=== PATIENT | male | born 1945 | race Caucasian/White ===

== ENCOUNTER 2018-01-18 15:55 | Inpatient (IN) | payer MEDICARE ==
[~2018-01-18] VITALS: Ht 180.3 cm; Wt 88.4 kg
[2018-01-18] MEDS ORDERED: GABA600T2 PO (16:05)
[2018-01-18] MEDS ORDERED: AMLODIPINE PO (16:05)
[2018-01-18] MEDS ORDERED: METF500T17 PO (16:05)
[2018-01-18] MEDS ORDERED: STATIN PO (16:05)
[2018-01-18] MEDS ORDERED: MELO15TA24 PO (16:05)
[2018-01-18] MEDS ORDERED: LOSA1TAB22 PO (16:05)
[2018-01-18] MEDS ORDERED: FINA5TAB4 PO (16:05)
[2018-01-18] MEDS ORDERED: FENO145T32 PO (16:05)
[2018-01-18 16:38] LABS: BASOPHILS # (AUTO) 0.07 x10^3/uL (0-0.1); BASOPHILS % (AUTO) 1 % (0-1); EOSINOPHILS # (AUTO) 0.12 x10^3/uL (0-0.4); EOSINOPHILS % (AUTO) 2 % (1-7); LYMPHOCYTES # (AUTO) 1.77 x10^3/uL (1-3.4); LYMPHOCYTES % (AUTO) 28 % (22-44); MD NO; MEAN CORPUSCULAR HEMOGLOBIN 30.2 pg (27.5-34.5); MONOCYTES # (AUTO) 0.38 x10^3/uL (0.2-0.8); MONOCYTES % (AUTO) 6 % (2-9); NEUTROPHILS % (AUTO) 64 % (42-75); PLATELET COUNT 418 x10^3/uL (130-400); RED BLOOD COUNT 4.41 x10^6/uL (4.38-5.82); RED CELL DISTRIBUTION WIDTH 13.6 % (9.4-14.8)
[2018-01-18 16:45] LABS: ALANINE AMINOTRANSFERASE 27 U/L (12-78); ALBUMIN 3.2 g/dL (3.4-5.0); ANION GAP 12 mmol/L (5-15); CALCIUM 8.6 mg/dL (8.5-10.1); CHLORIDE 106 mmol/L (98-107)
[2018-01-18 16:47] LABS: INTERNATIONAL NORMALIZED RATIO 0.99 (0.93-1.1); PROTHROMBIN TIME 10.5 Seconds (9.6-11.5)
[2018-01-18 16:50] LABS: ALKALINE PHOSPHATASE 58 U/L (45-117); BILIRUBIN,TOTAL 0.3 mg/dL (0.2-1.0); TOTAL PROTEIN 6.7 g/dL (6.4-8.2); TROPONIN I < 0.015 ng/mL (0.000-0.045)
[2018-01-18] MEDS ORDERED: SODIUM CHLORIDE 0.9% 1,000ML IVBOLUS ONE (17:00)
[2018-01-18 17:36] LABS: MICROSCOPIC NOT IND
[2018-01-18] MEDS ORDERED: ASPIRIN 81 MG TABLET EC ONE (17:46)
[2018-01-18 17:51] LABS: CULTURE INDICATED? NO
[2018-01-18] MEDS ORDERED: SODIUM CHLORIDE FLUSH 10ML SYR IVF ONE (18:00)
[2018-01-18] MEDS ORDERED: POLYETHYLENE GLYCOL 17 GM PACKET PO PRN (18:00)
[2018-01-18] MEDS ORDERED: ACETAMINOPHEN 325 MG TABLET PO PRN (18:00)
[2018-01-18] MEDS ORDERED: SODIUM CHLORIDE 0.9% 1,000 ML IV ONE (18:00)
[2018-01-18] MEDS ORDERED: ASPIRIN 81 MG TABLET EC PO ONE (18:00)
[2018-01-18] MEDS ORDERED: BISACODYL 10 MG SUPP PR PRN (18:00)
[2018-01-18] MEDS ORDERED: ONDANSETRON ODT 4 MG PO PRN (18:00)
[2018-01-18 18:55] LABS: HEMOGLOBIN A1C 6.9 % (4.2-6.3)
[2018-01-18 19:28] VITALS: BP 109/69
[2018-01-18] MEDS ORDERED: metFORMIN 500 MG TABLET PO SCH (21:00)
[2018-01-18] MEDS: HEPARIN 5,000 UNITS/ML, 1ML SQ SCH (22:31)
[2018-01-18] MEDS: GABAPENTIN 300 MG CAPSULE PO SCH (22:32)
[2018-01-18] MEDS: SODIUM CHLORIDE FLUSH 10ML SYR IVF SCH (22:33)
[2018-01-19] VITALS (7 sets, daily range): BP systolic 101–133; BP diastolic 65–87
[2018-01-19 06:03] LABS: BASOPHILS # (AUTO) 0.06 x10^3/uL (0-0.1); BASOPHILS % (AUTO) 1 % (0-1); EOSINOPHILS % (AUTO) 3 % (1-7); LYMPHOCYTES % (AUTO) 36 % (22-44); MD NO; MEAN CORPUSCULAR HEMOGLOBIN 30.2 pg (27.5-34.5); MEAN CORPUSCULAR HGB CONC 33.9 g/dL (33.2-36.2); MEAN CORPUSCULAR VOLUME 89.1 fL (81-97); MEAN PLATELET VOLUME 7.1 fL (7.4-10.4); MONOCYTES % (AUTO) 8 % (2-9); NEUTROPHILS % (AUTO) 53 % (42-75); PLATELET COUNT 402 x10^3/uL (130-400); RED BLOOD COUNT 4.29 x10^6/uL (4.38-5.82); RED CELL DISTRIBUTION WIDTH 13.6 % (9.4-14.8)
[2018-01-19 06:14] LABS: ALBUMIN 3.2 g/dL (3.4-5.0); ANION GAP 8 mmol/L (5-15); CALCIUM 8.8 mg/dL (8.5-10.1); CHLORIDE 109 mmol/L (98-107)
[2018-01-19 06:21] LABS: ALANINE AMINOTRANSFERASE 26 U/L (12-78); ALKALINE PHOSPHATASE 45 U/L (45-117); BILIRUBIN,TOTAL 0.3 mg/dL (0.2-1.0); CREATININE 1.01 mg/dL (0.7-1.3); TOTAL PROTEIN 6.4 g/dL (6.4-8.2); TROPONIN I < 0.015 ng/mL (0.000-0.045)
[2018-01-19] MEDS: ASPIRIN 325 MG TABLET EC PO SCH (06:22)
[2018-01-19] MEDS: HEPARIN 5,000 UNITS/ML, 1ML SQ SCH ×2 (06:22→13:30)
[2018-01-19] MEDS ORDERED: LOSARTAN 50MG TABLET PO SCH (09:00)
[2018-01-19] MEDS ORDERED: FENOFIBRATE 145 MG TABLET PO SCH (09:00)
[2018-01-19] MEDS: GABAPENTIN 300 MG CAPSULE PO SCH ×2 (10:08→19:53)
[2018-01-19] MEDS: FINASTERIDE 5 MG TABLET PO SCH (10:08)
[2018-01-19] MEDS: FENOFIBRATE 145 MG TABLET PO SCH (10:08)
[2018-01-19] MEDS: SENNA/DOCUSATE TABLET PO SCH (10:09)
[2018-01-19] MEDS ORDERED: OMNIPAQUE 350 MG/ML, 100ML BOTTLE ONE (10:55)
[2018-01-19] MEDS: SODIUM CHLORIDE FLUSH 10ML SYR IVF SCH ×2 (11:31→19:53)
[2018-01-19] MEDS ORDERED: HEPARIN 5,000 UNITS/ML, 1ML IV ONE (17:30)
[2018-01-19] MEDS: HEPARIN 25,000 UNITS/500ML PMX 500 ML IV PRN ×2 (17:34→18:28)
[2018-01-19] MEDS: ATORVASTATIN 40 MG TABLET PO SCH (19:53)
[2018-01-19] MEDS: INSULIN LISPRO 100 UNITS/ML, PEN SQ-INSULIN SCH (21:00)
[2018-01-20] VITALS (8 sets, daily range): BP systolic 110–162; BP diastolic 64–82
[2018-01-20] MEDS: HEPARIN 5,000 UNITS/ML, 1ML IV PRN ×4 (01:16→21:54)
[2018-01-20] MEDS: ASPIRIN 325 MG TABLET EC PO SCH (05:28)
[2018-01-20 05:42] LABS: BASOPHILS # (AUTO) 0.05 x10^3/uL (0-0.1); BASOPHILS % (AUTO) 1 % (0-1); EOSINOPHILS # (AUTO) 0.19 x10^3/uL (0-0.4); EOSINOPHILS % (AUTO) 3 % (1-7); LYMPHOCYTES # (AUTO) 2.74 x10^3/uL (1-3.4); LYMPHOCYTES % (AUTO) 36 % (22-44); MD NO; MEAN CORPUSCULAR HEMOGLOBIN 29.8 pg (27.5-34.5); MEAN CORPUSCULAR HGB CONC 33.8 g/dL (33.2-36.2); MEAN CORPUSCULAR VOLUME 88.3 fL (81-97); MONOCYTES # (AUTO) 0.71 x10^3/uL (0.2-0.8); MONOCYTES % (AUTO) 9 % (2-9); NEUTROPHILS # (AUTO) 4.03 x10^3/uL (1.8-6.8); NEUTROPHILS % (AUTO) 52 % (42-75); PLATELET COUNT 437 x10^3/uL (130-400); RED BLOOD COUNT 4.37 x10^6/uL (4.38-5.82); RED CELL DISTRIBUTION WIDTH 13.3 % (9.4-14.8)
[2018-01-20 05:49] LABS: ANION GAP 9 mmol/L (5-15); CALCIUM 8.5 mg/dL (8.5-10.1); CHLORIDE 108 mmol/L (98-107)
[2018-01-20 05:55] LABS: CHOLESTEROL, TOTAL 143 mg/dL (140-239); CREATININE 0.95 mg/dL (0.7-1.3); HDL CHOL % 25 % (26-37); HDL CHOLESTEROL (DIRECT) 36 mg/dL (40-60); LDL CHOLESTEROL,CALCULATED 77 mg/dL (54-169); LDL/HDL RATIO 2.1 (0.5-3.0); TRIGLYCERIDES 152 mg/dL (50-200); VLDL CHOLESTEROL 30 mg/dL (0-25)
[2018-01-20] MEDS: INSULIN LISPRO 100 UNITS/ML, PEN SQ-INSULIN SCH ×4 (08:17→20:50)
[2018-01-20] MEDS ORDERED: LOSARTAN 50MG TABLET PO SCH (09:00)
[2018-01-20] MEDS: FENOFIBRATE 145 MG TABLET PO SCH (10:22)
[2018-01-20] MEDS: FINASTERIDE 5 MG TABLET PO SCH (10:22)
[2018-01-20] MEDS: GABAPENTIN 300 MG CAPSULE PO SCH ×2 (10:22→20:49)
[2018-01-20] MEDS: SODIUM CHLORIDE FLUSH 10ML SYR IVF SCH ×2 (10:24→20:50)
[2018-01-20] MEDS: SENNA/DOCUSATE TABLET PO SCH (11:15)
[2018-01-20] MEDS ORDERED: GADOBUTROL 10 MMOL/10 ML PFS ONE (12:08)
[2018-01-20] MEDS: OXYcodone IR 5MG TABLET PO PRN ×2 (14:52→20:49)
[2018-01-20] MEDS: HEPARIN 25,000 UNITS/500ML PMX 500 ML IV PRN (15:13)
[2018-01-20] MEDS ORDERED: OMNIPAQUE 350 MG/ML, 100ML BOTTLE ONE (16:06)
[2018-01-20] MEDS: ATORVASTATIN 40 MG TABLET PO SCH (20:49)
[2018-01-21 00:51] VITALS: BP 118/67
[2018-01-21] MEDS: ASPIRIN 325 MG TABLET EC PO SCH (05:14)
[2018-01-21] MEDS: HEPARIN 5,000 UNITS/ML, 1ML IV PRN (05:14)
[2018-01-21 07:28] VITALS: BP 146/82
[2018-01-21] MEDS: HEPARIN 25,000 UNITS/500ML PMX 500 ML IV PRN (07:29)
[2018-01-21] MEDS: INSULIN LISPRO 100 UNITS/ML, PEN SQ-INSULIN SCH ×2 (07:42→11:26)
[2018-01-21] MEDS: OXYcodone IR 5MG TABLET PO PRN ×2 (07:55→14:19)
[2018-01-21] MEDS: SENNA/DOCUSATE TABLET PO SCH (07:55)
[2018-01-21] MEDS: FENOFIBRATE 145 MG TABLET PO SCH (07:55)
[2018-01-21] MEDS: FINASTERIDE 5 MG TABLET PO SCH (07:55)
[2018-01-21] MEDS: GABAPENTIN 300 MG CAPSULE PO SCH (07:55)
[2018-01-21] MEDS: SODIUM CHLORIDE FLUSH 10ML SYR IVF SCH (07:56)
[2018-01-21 09:19] LABS: ANION GAP 7 mmol/L (5-15); CALCIUM 8.6 mg/dL (8.5-10.1); CHLORIDE 109 mmol/L (98-107); CREATININE 0.98 mg/dL (0.7-1.3)
[2018-01-21 09:22] LABS: BASOPHILS # (AUTO) 0.07 x10^3/uL (0-0.1); BASOPHILS % (AUTO) 1 % (0-1); EOSINOPHILS # (AUTO) 0.22 x10^3/uL (0-0.4); EOSINOPHILS % (AUTO) 3 % (1-7); LYMPHOCYTES # (AUTO) 2.81 x10^3/uL (1-3.4); LYMPHOCYTES % (AUTO) 40 % (22-44); MD NO; MEAN CORPUSCULAR HEMOGLOBIN 30.1 pg (27.5-34.5); MEAN CORPUSCULAR HGB CONC 33.6 g/dL (33.2-36.2); MEAN CORPUSCULAR VOLUME 89.8 fL (81-97); MEAN PLATELET VOLUME 7.7 fL (7.4-10.4); MONOCYTES % (AUTO) 9 % (2-9); NEUTROPHILS # (AUTO) 3.38 x10^3/uL (1.8-6.8); NEUTROPHILS % (AUTO) 48 % (42-75); PLATELET COUNT 453 x10^3/uL (130-400); RED BLOOD COUNT 4.52 x10^6/uL (4.38-5.82); RED CELL DISTRIBUTION WIDTH 13.7 % (9.4-14.8)
[2018-01-21] MEDS ORDERED: HYDROCORTISONE CRM 1%, 30GM TP PRN (09:30)
[2018-01-21] MEDS ORDERED: AMLO5TAB4 PO (11:17)
[2018-01-21] MEDS ORDERED: HYDR25TA6 PO (11:17)
[2018-01-21] MEDS ORDERED: APIX5TAB PO (11:17)
[2018-01-21] MEDS ORDERED: ATOR40TA78 PO (11:17)
[2018-01-21] MEDS ORDERED: LOSA50TA2 PO (11:17)
[2018-01-21] MEDS ORDERED: APIXABAN 5 MG TABLET PO SCH (21:00)
== END 2018-01-21 15:25 | disposition home health service (06) | DRG 64 ==
LOC: ED 17:32 → EDIP 17:33 → ED 18:33 → 5SO 19:15 → DCLOUNGE 01-21 14:55
PROVIDERS: ADMIT Family Medicine; ATTEND Family Medicine
PROC: 5A09357 Assistance with Respiratory Ventilation, Less than 24 Consecutive Hours, Continuous Positive Airway Pressure (ICD-10-PCS; principal; 2018-01-19)
DX: I63.9 Cerebral infarction, unspecified (principal); N17.0 Acute kidney failure with tubular necrosis; D68.69 Other thrombophilia; E44.1 Mild protein-calorie malnutrition; G90.8 Other disorders of autonomic nervous system; I48.91 Unspecified atrial fibrillation; I10 Essential (primary) hypertension; D64.9 Anemia, unspecified; E11.9 Type 2 diabetes mellitus without complications; E86.0 Dehydration; E78.5 Hyperlipidemia, unspecified; G47.33 Obstructive sleep apnea (adult) (pediatric); I07.1 Rheumatic tricuspid insufficiency; I25.10 Atherosclerotic heart disease of native coronary artery without angina pectoris; D47.3 Essential (hemorrhagic) thrombocythemia; I65.22 Occlusion and stenosis of left carotid artery; Z96.653 Presence of artificial knee joint, bilateral; I45.10 Unspecified right bundle-branch block; I48.0 Paroxysmal atrial fibrillation; K59.00 Constipation, unspecified; N40.0 Benign prostatic hyperplasia without lower urinary tract symptoms; Z79.01 Long term (current) use of anticoagulants; Z81.8 Family history of other mental and behavioral disorders; Z82.49 Family history of ischemic heart disease and other diseases of the circulatory system; Z86.73 Personal history of transient ischemic attack (TIA), and cerebral infarction without residual deficits; Z87.891 Personal history of nicotine dependence; Z79.899 Other long term (current) drug therapy; Z68.27 Body mass index [BMI] 27.0-27.9, adult
CPT/HCPCS: 36415; 70450; 70498; 70551; 70552; 71275; 80048; 80053; 80061; 81003; 82962; 83036; 83735; 84443; 84484; 85025; 85379; 85520; 85610; 85730; 93005; 93306; 93880; 94660; 99285; A9585; G0378; J1644; Q9967; J7030

== ENCOUNTER → 2018-03-07 | Outpatient (CLI) | payer MEDICARE ==
[~2018-03-07] MED LIST: AMLO5TAB4 PO; AMLODIPINE PO; APIX5TAB PO; ATOR40TA78 PO; FENO145T32 PO; FINA5TAB4 PO; GABA600T2 PO; HYDR25TA6 PO; LOSA1TAB22 PO; LOSA50TA2 PO; MELO15TA24 PO; METF500T17 PO; REGADENOSON 0.4 MG/5 ML SYRINGE ONE; STATIN PO
== END | disposition home or self-care (01) ==
LOC: CFH 07:31
PROVIDERS: ATTEND Internal Medicine Cardiovascular Disease
DX: I48.1 Persistent atrial fibrillation (principal); R94.31 Abnormal electrocardiogram [ECG] [EKG]
CPT/HCPCS: 78452; 93017; A9502; J2785